=== PATIENT | female | born 1960 | race Caucasian/White ===

== ENCOUNTER → 2016-11-18 | Outpatient (CLI) | payer BC ==
[~2016-11-18] MED LIST: ESCI1TAB6 PO
== END | disposition home or self-care (01) ==
LOC: C.PAPS 11:52
PROVIDERS: ATTEND Obstetrics & Gynecology
DX: Z01.419 Encounter for gynecological examination (general) (routine) without abnormal findings (principal)

== ENCOUNTER → 2016-12-03 | Outpatient (CLI) | payer BC ==
--- NOTE | 2016-12-04 13:55 | MAMMOGRAPHY REPORT ---
BILATERAL DIGITAL SCREENING MAMMOGRAM TOMOSYNTHESIS WITH CAD: 12/03/2016 CLINICAL HISTORY: Routine screening. Patient has no complaints. TECHNIQUE: Breast tomosynthesis in addition to standard 2D mammography was performed. Current study was also evaluated with a Computer Aided Detection (CAD) system. COMPARISON: Comparison is made to exams dated: 08/04/2014 mammogram, 08/01/2013 mammogram, 07/28/2012 henry mogram, 07/28/2011 mammogram, 07/24/2010 mammogram, and 07/19/2009 mammogram - [facility] BREAST COMPOSITION: The tissue of both breasts is extremely dense, which lowers the sensitivity of m ammography. FINDINGS: The parenchymal pattern is unchanged. No developing mass, architectural distortion or clus ter of suspicious microcalcifications is seen in either breast. IMPRESSION: ACR BI-RADS CATEGORY 2: BENIGN There is no mammographic evidence of malignancy. A 1 year screening mammogram is recommended. The pa tient will receive written notification of the results. Approximately 10% of breast cancers are not detected with mammography. A negative mammographic report should not delay biopsy if a clinically suggestive mass is present. Elmira Walker M.D. ay/:12/03/2016 16:02:26 Retrimmer: Carina CALVILLO(Scar)(M), [facility] letter sent: Normal 1/2 BI-RADS Code: ACR BI-RADS Category 2: Benign
== END | disposition home or self-care (01) ==
LOC: C.MAMM 14:28
PROVIDERS: ATTEND Obstetrics & Gynecology
DX: Z12.31 Encounter for screening mammogram for malignant neoplasm of breast (principal)

== ENCOUNTER → 2017-05-11 | Outpatient (CLI) | payer BC, OTHER ==
--- NOTE | 2017-05-11 09:19 | DIAGNOSTIC IMAGING REPORT ---
R KNEE 4 OR MORE CLINICAL HISTORY: RIGHT KNEE PAIN pain COMPARISON: None. DISCUSSION: Findings consistent with prior operative changes of anterior cruciate ligament repairs/high tibial osteotomies bilaterally. There are moderate degenerative change of all major joint compartments bilaterally. Mild osteophytic changes identified at the level of the tibial spines as well as lateral joint compartments bilaterally. There is no significant joint effusion. There is no evidence for soft tissue swelling. IMPRESSION: 1. No acute process. 2. Significant degenerative change all major joint compartments with evidence for bilateral high tibial osteotomies, and/or combined with with prior anterior cruciate ligament repair procedures The above report was generated using voice recognition software. It may contain grammatical, syntax or spelling errors. Electronically signed by: Bart Lang M.D. 05/11/2017 9:18 AM Dictated Date/Time: 05/11/2017 9:16 AM
== END | disposition home or self-care (01) ==
LOC: C.RDSM 19:05
PROVIDERS: ATTEND Physician Assistant
DX: M25.561 Pain in right knee (principal)